=== PATIENT | male | born 1945 | race Caucasian/White ===

== ENCOUNTER 2021-05-23 19:54 | Inpatient (IN) | payer MEDICARE, BC ==
[~2021-05-23] VITALS: Ht 182.9 cm; Wt 96.2 kg
--- NOTE | 2021-05-23 20:15 | NUR ---
pt [facility] from assisted living. a/ox4. pt c/o headache 12/22 and nausea started today at 2pm.pt has hx mi with stent, cva with left sided weakness. pt does not have facial droop, no extremities drift, has symmetrical smile. pt placed on monitor ,vss.
[2021-05-23] MEDS ORDERED: MECLIZINE HCL 25 MG TABLET ONE (20:27)
[2021-05-23] MEDS ORDERED: IV NS 0.9% 1,000 ML BAG IV ONE (20:30)
[2021-05-23] MEDS ORDERED: MECLIZINE HCL 12.5 MG TABLET PO ONE (20:30)
[2021-05-23 20:31] LABS: BASOPHILS % (AUTO) 0.2 % (0.0-2.0); HEMATOCRIT 40 % (39-51); HEMOGLOBIN 13.5 g/dL (13.5-17.5); LYMPHOCYTES # (AUTO) 1.9 K/uL (0.8-4.8); LYMPHOCYTES % (AUTO) 14.7 % (20.0-44.0); MEAN CORPUSCULAR HGB CONC 34 g/dl (31.0-36.0); MEAN CORPUSCULAR VOLUME 91 fL (80-96); MONOCYTES # (AUTO) 1.1 K/uL (0.1-1.30); MONOCYTES % (AUTO) 8.7 % (2.0-12.0); NEUTROPHILS # (AUTO) 9.2 K/uL (1.8-8.9); NEUTROPHILS % (AUTO) 72.4 % (43.0-81.0); PLATELET COUNT (AUTO) 214 K/uL (150-450); RED BLOOD CELL COUNT(AUTO) 4.37 MIL/uL (4.5-6.0); WHITE BLOOD COUNT (AUTO) 12.7 K/uL (4.3-11.0)
[2021-05-23 20:47] LABS: ALANINE AMINOTRANSFERASE 34 U/L (12-78); ALKALINE PHOSPHATASE 138 U/L (46-116); ASPARTATE AMINOTRANSFERASE 18 U/L (15-37); BILIRUBIN,DIRECT 0.2 mg/dL (0.0-0.2); BILIRUBIN,TOTAL 0.7 mg/dL (0.2-1.0); CALCIUM, SERUM 8.4 mg/dL (8.5-10.1); CARBON DIOXIDE 28 mmol/L (21-32); CHLORIDE 104 mmol/L (98-107); CREATININE 1.5 mg/dL (0.6-1.3); GLUCOSE 115 mg/dL (74-106); POTASSIUM 3.8 mmol/L (3.5-5.1); SODIUM SERUM 140 mmol/L (136-145); TOTAL PROTEIN, SERUM 6.4 g/dL (6.4-8.2); UREA NITROGEN, BLOOD 27 mg/dL (7-18)
[2021-05-23] MEDS ORDERED: ENOXAPARIN SODIUM 100 MG/ML DISP.SYRIN SQ ONE ×2 (21:30→22:06)
--- NOTE | 2021-05-23 22:10 | NUR ---
TELE 109
--- NOTE | 2021-05-23 22:30 | NUR ---
report given to diandra reddy).
--- NOTE | 2021-05-23 22:42 | NUR ---
RN NOTE REPORT RECEIVED BY LILIAM SOTO.
--- NOTE | 2021-05-23 22:45 | NUR ---
RN NOTE PT TRANSFERRED TO [facility] FROM ER. PT IS ON ROOM AIR SHOWING NO S/S OF RESP DISTRESS/SOB. PT IS A/OX4. ON TELE MONITOR SHOWING HR IN HIGH 50'S. IV ACCESS NOTED ON LEFT AC #18. LINE FLUSHED, PATENT, AND INTACT WITH NO SIGNS OF INFILTRATION. ALL SAFETY MEASURES IMPLEMENTED. BED ALARM ON. BED LOCKED AND IN LOWEST POSITION. CALL LIGHT WITHIN REACH. WILL CONTINUE TO MONITOR AND ASSESS FOR ANY CHANGES DURING SHIFT.
[2021-05-23] MEDS ORDERED: DOCU100C36 PO (22:51)
[2021-05-23] MEDS ORDERED: FINA5TAB4 PO (22:51)
[2021-05-23] MEDS ORDERED: ASPI-1169 PO (22:51)
[2021-05-23] MEDS ORDERED: CARV12.52 PO (22:51)
[2021-05-23] MEDS ORDERED: ATOR80TA PO (22:51)
[2021-05-23] MEDS ORDERED: OMEP20CA15 PO (22:51)
[2021-05-23] MEDS ORDERED: VALS160T29 PO (22:51)
[2021-05-23] MEDS ORDERED: HYDR-4077 PO (22:51)
[2021-05-23] MEDS ORDERED: CITA10TA9 PO (22:51)
[2021-05-23] MEDS ORDERED: NICO-676 TP (22:51)
--- NOTE | 2021-05-23 22:53 | NUR ---
pt transfeered to [facility] per acls protocol.
[2021-05-23] MEDS ORDERED: ZOLPIDEM TARTRATE 5 MG TABLET PO PRN (23:00)
[2021-05-23] MEDS ORDERED: Z GUARD REMEDY 2 OZ OINT TP PRN (23:00)
[2021-05-23] MEDS ORDERED: ONDANSETRON HCL/PF 4 MG/2 ML VIAL IVP PRN (23:00)
[2021-05-23] MEDS ORDERED: MAG HYDROX/AL HYDROX/SIMETH 30 ML UDC PO PRN (23:00)
[2021-05-23] MEDS ORDERED: MAGNESIUM HYDROXIDE 30 ML UDC PO PRN (23:00)
[2021-05-23 23:05] VITALS: BP 184/89
[2021-05-23] MEDS ORDERED: hydrALAZINE HCL IV 20 MG VIAL IV PRN (23:30)
[2021-05-23] MEDS ORDERED: IV NS 0.45% 500 ML IV ONE (23:30)
--- NOTE | 2021-05-23 23:47 | NUR ---
RN NOTE SPOKE WITH DR. VERA ABOUT PT SYSTOLIC BP IN 180S. DR. VERA ORDERED HYDRALAZINE 10MG IVP Q4H PRN FOR SBP >160. ALSO INFORMED ABOUT PT HR OF 58. PER DR. VERA ORDER, OKAY TO STILL GIVE. ORDER NOTED AND CARRIED OUT.
--- NOTE | 2021-05-24 02:12 | NUR ---
RN NOTE PT BP NOW WNL OF 147/77. WILL CONTINUE TO MONITOR AND ASSESS FOR ANY CHANGES.
[2021-05-24 04:00] VITALS: BP 155/86
[2021-05-24 06:44] LABS: BASOPHILS # (AUTO) 0.1 K/uL (0.0-0.2); EOSINOPHILS % (AUTO) 4.8 % (0.0-6.0); HEMATOCRIT 38 % (39-51); HEMOGLOBIN 13.1 g/dL (13.5-17.5); LYMPHOCYTES # (AUTO) 2.2 K/uL (0.8-4.8); LYMPHOCYTES % (AUTO) 21.1 % (20.0-44.0); MEAN CORPUSCULAR HGB CONC 34 g/dl (31.0-36.0); MEAN CORPUSCULAR VOLUME 92 fL (80-96); MONOCYTES # (AUTO) 0.9 K/uL (0.1-1.30); MONOCYTES % (AUTO) 8.2 % (2.0-12.0); NEUTROPHILS # (AUTO) 6.8 K/uL (1.8-8.9); NEUTROPHILS % (AUTO) 64.9 % (43.0-81.0); PLATELET COUNT (AUTO) 186 K/uL (150-450); RED BLOOD CELL COUNT(AUTO) 4.18 MIL/uL (4.5-6.0); WHITE BLOOD COUNT (AUTO) 10.4 K/uL (4.3-11.0)
[2021-05-24 06:52] LABS: CALCIUM, SERUM 8.5 mg/dL (8.5-10.1); CARBON DIOXIDE 26 mmol/L (21-32); CHLORIDE 106 mmol/L (98-107); CREATININE 1.5 mg/dL (0.6-1.3); GLUCOSE 93 mg/dL (74-106); MAGNESIUM 1.6 mg/dL (1.8-2.4); PHOSPHORUS 3.1 mg/dL (2.5-4.9); SODIUM SERUM 141 mmol/L (136-145); UREA NITROGEN, BLOOD 22 mg/dL (7-18)
--- NOTE | 2021-05-24 06:58 | NUR ---
RN NOTE NO CHANGES IN PT CONDITION DURING SHIFT. PT IS ON ROOM AIR SHOWING NO S/S OF RESP DISTRESS/SOB. PT IS A/OX4. IV ACCESS NOTED ON LEFT AC #18. LINE FLUSHED, PATENT, AND INTACT WITH NO SIGNS OF INFILTRATION. ALL DUE MEDS GIVEN ORDERED. PT KEPT CLEAN AND COMFORTABLE. ALL SAFETY MEASURES IMPLEMENTED. BED ALARM ON. BED LOCKED AND IN LOWEST POSITION. CALL LIGHT WITHIN REACH. WILL ENDORSE TO MORNING SHIFT RN FOR JC.
[2021-05-24 07:47] LABS: THYROID STIMULATING HORMONE 1.325 uIU/mL (0.358-3.74)
[2021-05-24] MEDS ORDERED: FLUT16SP (07:48)
[2021-05-24] MEDS ORDERED: ALBU8.5H8 IH (07:48)
[2021-05-24] MEDS ORDERED: PRAS10TA5 PO (07:48)
--- NOTE | 2021-05-24 07:59 | NUR ---
NURSE OPENING NOTE. RECEIVE REPORT FROM LITHOGRAPHIC PRESS OPERATOR NURSE. PATIENT WAS ADMITTED LAST NIGHT WITH DX: NSTEMI. A/O X4. WILL FOLLOW UP TROPONIN, AM LABS, AND CARDIAC CONSULT. REMAIN ON IV FLUID HYDRATION. SAFETY MEASURE IN PLACE. BED ON THE LOWEST POSITION WITH HOB ELEVATED. CALL LIGHT WITHIN REACH. WILL CONTINUE TO MONITOR.
[2021-05-24 08:00] VITALS: BP 189/82
[2021-05-24] MEDS: CARVEDILOL 12.5 MG TABLET PO SCH ×2 (08:50→20:32)
[2021-05-24] MEDS: DOCUSATE SODIUM 100 MG CAPSULE PO SCH ×3 (08:51→18:22)
[2021-05-24] MEDS: FINASTERIDE (5 MG) 5 MG TABLET PO SCH (08:52)
[2021-05-24] MEDS: ATORVASTATIN 40 MG TABLET PO SCH (08:52)
[2021-05-24] MEDS: NICOTINE PATCH (14MG) 14 MG PATCH.TD24 TD SCH (08:52)
[2021-05-24] MEDS: ASPIRIN 81 MG TAB.CHEW PO SCH (08:52)
[2021-05-24] MEDS: PANTOPRAZOLE 40 MG TABLET.DR PO SCH (08:56)
[2021-05-24] MEDS: CITALOPRAM HYDROBROMIDE 10 MG TABLET PO SCH (08:58)
[2021-05-24] MEDS ORDERED: ENOXAPARIN SODIUM 100 MG/ML DISP.SYRIN SQ SCH ×2 (09:00)
[2021-05-24] MEDS ORDERED: OMEPRAZOLE 20 MG CAPSULE.DR PO SCH (09:00)
[2021-05-24] MEDS ORDERED: hydrALAZINE HCL 50 MG TABLET PO SCH (09:00)
[2021-05-24] MEDS ORDERED: CLOPIDOGREL BISULFATE 300 MG TABLET PO ONE (09:30)
[2021-05-24] MEDS: Magnesium 1GM/D5W 100ML PREMIX 100 ML IV SCH ×2 (10:11→11:47)
[2021-05-24] MEDS: ISOSORBIDE DINITRATE (20MG) 20 MG TABLET PO SCH ×2 (10:11→18:14)
[2021-05-24 12:00] VITALS: BP 116/58
[2021-05-24] MEDS: hydrALAZINE HCL 50 MG TABLET PO SCH ×2 (13:55→18:15)
[2021-05-24 16:00] VITALS: BP 116/58
--- NOTE | 2021-05-24 19:44 | NUR ---
NURSE CLOSING NOTE. PATIENT IN STABLE CONDITION THROUGHOUT SHIFT. TOOK ALL MEDICATIONS. REFUSED DUCOSAT AT 1700. HAD 2 LARGE BOWEL MOVEMENTS. CONTINUE TO MONITOR TROPONIN TREND. CONTINUE TO MONITOR LABS. ALL SAFETY MEASURE IN PLACE. BED ON LOWEST POSITION WITH HOB ELEVATED AND 3 SIDE RAIL UP. CALL LIGHT WITHIN REACH.
[2021-05-24 20:00] VITALS: BP 112/90
[2021-05-24] MEDS: IV NS 0.9% 1,000 ML IV PRN (20:16)
[2021-05-25] VITALS: BP 95/54
[2021-05-25 04:00] VITALS: BP 107/64
--- NOTE | 2021-05-25 06:48 | NUR ---
RN NOTE NO SIGNIFICANT CHANGES IN PT CONDITION, ASIDE FROM PLACING PT ON O2 AT 2L VIA NC PT O2 SAT WAS 92%. PT STABLE AT THIS TIME. PT WAS CLEANED CHANGED LINENS CHANGED, IVF STILL RUNNING ORDERED SAFETY MEASURES IN PLACE. PT IS INDEPENDENT WITH URINAL USE, PT DENIES VOID TONIGHT, WILL ENDORSE TO DAY SHIFT FOR CONTINUATION OF CARE.
--- NOTE | 2021-05-25 07:12 | NUR ---
GEAR GRINDER OPENING NOTE. RECEIVE PATIENT RESTING IN BED. PATIENT IS A/O X4. PATIENT IS BREATHING EVENLY AND NONLABORED ON 2LPM VIA NASAL CANNULA. NO SIGNS OF DISTRESS NOTED. PATIENT DENIES PAIN OR DISCOMFORT AT THIS TIME. PATIENT IS ON TELE MONITOR SHOWING NSR. PATIENT HAS IV ACCESS TO LAC # 18 RUNNING NS @ 100 ML/HR. SAFETY MEASURE IN PLACE. BED ON THE LOWEST POSITION WITH HOB ELEVATED. CALL LIGHT WITHIN REACH. WILL CONTINUE TO MONITOR.
[2021-05-25 08:00] VITALS: BP 130/76
[2021-05-25] MEDS: NICOTINE PATCH (14MG) 14 MG PATCH.TD24 TD SCH (08:14)
[2021-05-25] MEDS: CARVEDILOL 12.5 MG TABLET PO SCH ×2 (08:14→20:16)
[2021-05-25] MEDS: ATORVASTATIN 40 MG TABLET PO SCH (08:14)
[2021-05-25] MEDS: PANTOPRAZOLE 40 MG TABLET.DR PO SCH (08:14)
[2021-05-25] MEDS: CLOPIDOGREL BISULFATE 75 MG TABLET PO SCH (08:14)
[2021-05-25] MEDS: ASPIRIN 81 MG TAB.CHEW PO SCH (08:14)
[2021-05-25] MEDS: ISOSORBIDE DINITRATE (20MG) 20 MG TABLET PO SCH ×2 (08:14→16:10)
[2021-05-25] MEDS: FINASTERIDE (5 MG) 5 MG TABLET PO SCH (08:14)
[2021-05-25] MEDS: hydrALAZINE HCL 50 MG TABLET PO SCH ×3 (08:15→16:10)
[2021-05-25] MEDS: CITALOPRAM HYDROBROMIDE 10 MG TABLET PO SCH (08:48)
[2021-05-25 10:11] LABS: CALCIUM, SERUM 8.6 mg/dL (8.5-10.1); CARBON DIOXIDE 18 mmol/L (21-32); CHLORIDE 106 mmol/L (98-107); CREATININE 1.6 mg/dL (0.6-1.3); GLUCOSE 95 mg/dL (74-106); SODIUM SERUM 138 mmol/L (136-145); UREA NITROGEN, BLOOD 31 mg/dL (7-18)
[2021-05-25 10:17] LABS: ALANINE AMINOTRANSFERASE 24 U/L (12-78); ALBUMIN 2.7 g/dL (3.4-5.0); ALKALINE PHOSPHATASE 135 U/L (46-116); ASPARTATE AMINOTRANSFERASE 20 U/L (15-37); BILIRUBIN,TOTAL 0.8 mg/dL (0.2-1.0); MAGNESIUM 2.2 mg/dL (1.8-2.4); PHOSPHORUS 3.6 mg/dL (2.5-4.9); TOTAL PROTEIN, SERUM 5.9 g/dL (6.4-8.2)
[2021-05-25 11:19] LABS: BASOPHILS # (AUTO) 0.1 K/uL (0.0-0.2); BASOPHILS % (AUTO) 0.6 % (0.0-2.0); EOSINOPHILS % (AUTO) 3.5 % (0.0-6.0); HEMATOCRIT 38 % (39-51); HEMOGLOBIN 12.8 g/dL (13.5-17.5); LYMPHOCYTES # (AUTO) 1.4 K/uL (0.8-4.8); LYMPHOCYTES % (AUTO) 13.3 % (20.0-44.0); MEAN CORPUSCULAR HGB CONC 34 g/dl (31.0-36.0); MEAN CORPUSCULAR VOLUME 92 fL (80-96); MONOCYTES % (AUTO) 9.8 % (2.0-12.0); NEUTROPHILS # (AUTO) 7.7 K/uL (1.8-8.9); NEUTROPHILS % (AUTO) 72.8 % (43.0-81.0); PLATELET COUNT (AUTO) 184 K/uL (150-450); RED BLOOD CELL COUNT(AUTO) 4.09 MIL/uL (4.5-6.0); WHITE BLOOD COUNT (AUTO) 10.6 K/uL (4.3-11.0)
[2021-05-25 12:10] VITALS: BP 123/60
[2021-05-25 16:09] VITALS: BP 146/71
[2021-05-25] MEDS: DOCUSATE SODIUM 100 MG CAPSULE PO SCH (16:10)
--- NOTE | 2021-05-25 18:24 | NUR ---
SCALES INSPECTOR CLOSING NOTE. PATIENT RESTING IN BED. PATIENT IS A/O X4. PATIENT IS BREATHING EVENLY AND NONLABORED ON 2LPM VIA NASAL CANNULA. NO SIGNS OF DISTRESS NOTED. PATIENT DENIES PAIN OR DISCOMFORT AT THIS TIME. PATIENT IS ON TELE MONITOR SHOWING NSR. PATIENT HAS IV ACCESS TO LAC # 18 RUNNING NS @ 100 ML/HR. ALL MEDICATIONS GIVEN ORDERED. SAFETY MEASURE IN PLACE. BED ON THE LOWEST POSITION WITH HOB ELEVATED. CALL LIGHT WITHIN REACH. WILL ENDORSE TO ONCOMING SHIFT.
--- NOTE | 2021-05-25 19:40 | NUR ---
RN NOTE PT RECEIVED IN BED. PT IS ON ROOM AIR SHOWING NO S/S OF RESP DISTRESS/SOB. PT IS A/OX4. ON TELE MONITOR SHOWING NSR. ON CARDIAC DIET. IV ACCESS NOTED ON LEFT AC #18. 0.9% NS RUNNING AT 100 ML/HR. LINE FLUSHED, PATENT, AND INTACT WITH NO SIGNS OF INFILTRATION. ALL SAFETY MEASURES IMPLEMENTED. BED ALARM ON. BED LOCKED AND IN LOWEST POSITION. CALL LIGHT WITHIN REACH. SIDE RAILS UP. WILL CONTINUE TO MONITOR AND ASSESS FOR ANY CHANGES DURING SHIFT.
[2021-05-25 20:00] VITALS: BP 140/74
[2021-05-25] MEDS: IV NS 0.9% 1,000 ML IV PRN (20:16)
[2021-05-26] VITALS: BP 128/67
[2021-05-26] MEDS: ACETAMINOPHEN 325 MG TABLET PO PRN ×2 (01:02→08:54)
[2021-05-26 04:00] VITALS: BP 142/84
[2021-05-26 06:59] LABS: BASOPHILS # (AUTO) 0.1 K/uL (0.0-0.2); EOSINOPHILS % (AUTO) 5.6 % (0.0-6.0); HEMATOCRIT 34 % (39-51); HEMOGLOBIN 11.7 g/dL (13.5-17.5); LYMPHOCYTES # (AUTO) 1.7 K/uL (0.8-4.8); MEAN CORPUSCULAR HGB CONC 34 g/dl (31.0-36.0); MEAN CORPUSCULAR VOLUME 92 fL (80-96); MONOCYTES # (AUTO) 1.1 K/uL (0.1-1.30); MONOCYTES % (AUTO) 10.6 % (2.0-12.0); NEUTROPHILS # (AUTO) 6.9 K/uL (1.8-8.9); NEUTROPHILS % (AUTO) 66.8 % (43.0-81.0); PLATELET COUNT (AUTO) 166 K/uL (150-450); RED BLOOD CELL COUNT(AUTO) 3.74 MIL/uL (4.5-6.0); WHITE BLOOD COUNT (AUTO) 10.4 K/uL (4.3-11.0)
[2021-05-26 07:05] LABS: CALCIUM, SERUM 7.9 mg/dL (8.5-10.1); CARBON DIOXIDE 23 mmol/L (21-32); CHLORIDE 106 mmol/L (98-107); CREATININE 1.6 mg/dL (0.6-1.3); GLUCOSE 99 mg/dL (74-106); MAGNESIUM 1.7 mg/dL (1.8-2.4); PHOSPHORUS 2.7 mg/dL (2.5-4.9); POTASSIUM 3.6 mmol/L (3.5-5.1); SODIUM SERUM 137 mmol/L (136-145); UREA NITROGEN, BLOOD 26 mg/dL (7-18)
--- NOTE | 2021-05-26 07:13 | NUR ---
RN NOTE NO CHANGES IN PT CONDITION DURING SHIFT. PT IS ON ROOM AIR SHOWING NO S/S OF RESP DISTRESS/SOB. IV ACCESS NOTED ON LEFT AC #18. LINE FLUSHED, PATENT, AND INTACT WITH NO SIGNS OF INFILTRATION. ALL DUE MEDS GIVEN ORDERED. PT KEPT CLEAN AND COMFORTABLE. ALL SAFETY MEASURES IMPLEMENTED. BED ALARM ON. BED LOCKED AND IN LOWEST POSITION. CALL LIGHT WITHIN REACH. WILL ENDORSE TO MORNING SHIFT RN FOR JC.
--- NOTE | 2021-05-26 07:21 | NUR ---
RN OPENING NOTE PATIENT RECEIVED IN BED, RESTING. PATIENT ON ROOM AIR WITH NO SIGNS OF LABORED BREATHING AT THIS TIME. LEFT AC 18G IV IN PLACE, PATENT WITH NO SIGNS OF INFILTRATION RUNNING NS AT 100CC/HR. NO SIGNS OF DISTRESS NOTED AT THIS TIME. BED LOCKED AND IN LOWEST POSITION, 3 SIDE RAILS UP, CALL LIGHT WITHIN REACH, ALL SAFETY MEASURES IMPLEMENTED. WILL CONTINUE TO MONITOR.
[2021-05-26] MEDS: PANTOPRAZOLE 40 MG TABLET.DR PO SCH (07:30)
[2021-05-26 08:00] VITALS: BP 159/78
[2021-05-26] MEDS: ASPIRIN 81 MG TAB.CHEW PO SCH (08:42)
[2021-05-26] MEDS: ATORVASTATIN 40 MG TABLET PO SCH (08:42)
[2021-05-26] MEDS: NICOTINE PATCH (14MG) 14 MG PATCH.TD24 TD SCH (08:42)
[2021-05-26] MEDS: ISOSORBIDE DINITRATE (20MG) 20 MG TABLET PO SCH ×2 (08:43→16:03)
[2021-05-26] MEDS: FINASTERIDE (5 MG) 5 MG TABLET PO SCH (08:43)
[2021-05-26] MEDS: DOCUSATE SODIUM 100 MG CAPSULE PO SCH ×2 (08:43→16:02)
[2021-05-26] MEDS: hydrALAZINE HCL 50 MG TABLET PO SCH ×3 (08:43→16:02)
[2021-05-26] MEDS: CLOPIDOGREL BISULFATE 75 MG TABLET PO SCH (08:44)
[2021-05-26] MEDS: CARVEDILOL 12.5 MG TABLET PO SCH ×2 (08:44→21:23)
[2021-05-26] MEDS: CITALOPRAM HYDROBROMIDE 10 MG TABLET PO SCH (08:45)
[2021-05-26] MEDS: Magnesium 1GM/D5W 100ML PREMIX 100 ML IV SCH ×2 (10:04→11:03)
[2021-05-26] MEDS: IV NS 0.9% 1,000 ML IV PRN ×2 (11:03→20:44)
[2021-05-26 12:00] VITALS: BP 117/61
[2021-05-26 16:00] VITALS: BP 143/62
[2021-05-26] MEDS ORDERED: HYDR-4077 PO (16:47)
[2021-05-26] MEDS ORDERED: ISOS20TA8 PO (16:47)
--- NOTE | 2021-05-26 18:30 | NUR ---
RN CLOSING NOTE PATIENT IN BED, RESTING, A&OX4. PATIENT ON ROOM AIR WITH NO SIGNS OF LABORED BREATHING AT THIS TIME. TELE MONITOR ON, SINUS RHYTHM. LEFT AC 18G IV IN PLACE, PATENT WITH NO SIGNS OF INFILTRATION. NO SIGNS OF DISTRESS NOTED AT THIS TIME. BED LOCKED AND IN LOWEST POSITION, CALL LIGHT WITHIN REACH, 2 SIDE RAILS UP, ALL SAFETY MEASURES IMPLEMENTED. WILL ENDORSE TO ASSISTANT DIRECTOR OF NURSING NURSE.
--- NOTE | 2021-05-26 19:40 | NUR ---
RN NOTE RECEIVED PATIENT IN BED, AWAKE, ALERT, AND VERBALLY RESPONSIVE, WATCHING TELEVISION. BREATHING EVEN AND UNLABORED. NO SOB NOTED. NO COUGH/CONGESTION NOTED. APPLIED OXYGEN LOW FLOW PER PATIENT REQUEST. TOLERATING WITH OXYGEN SATURATION OF 96 PERCENT. SKIN WARM AND DRY. NOTED WITH LEFT LATERAL AC 18G. PATENT, RUNNING NS AT 100 ML/HR. NO INFILTRATION NOTED. DENIES PAIN AT THIS TIME. ALL NEEDS ATTENDED. BED LOW, IN LOCKED POSITION. CALL LIGHT WITHIN REACH.
[2021-05-26 20:00] VITALS: BP 136/65
[2021-05-27] VITALS: BP 126/80
[2021-05-27 04:00] VITALS: BP 144/68
[2021-05-27] MEDS: IV NS 0.9% 1,000 ML IV PRN (05:14)
[2021-05-27 06:31] LABS: BASOPHILS # (AUTO) 0.1 K/uL (0.0-0.2); BASOPHILS % (AUTO) 0.8 % (0.0-2.0); EOSINOPHILS % (AUTO) 5.7 % (0.0-6.0); HEMATOCRIT 35 % (39-51); HEMOGLOBIN 11.9 g/dL (13.5-17.5); LYMPHOCYTES # (AUTO) 1.5 K/uL (0.8-4.8); LYMPHOCYTES % (AUTO) 14.5 % (20.0-44.0); MEAN CORPUSCULAR HGB CONC 35 g/dl (31.0-36.0); MEAN CORPUSCULAR VOLUME 91 fL (80-96); MONOCYTES % (AUTO) 9.3 % (2.0-12.0); NEUTROPHILS # (AUTO) 7.4 K/uL (1.8-8.9); NEUTROPHILS % (AUTO) 69.7 % (43.0-81.0); PLATELET COUNT (AUTO) 165 K/uL (150-450); RED BLOOD CELL COUNT(AUTO) 3.79 MIL/uL (4.5-6.0); WHITE BLOOD COUNT (AUTO) 10.6 K/uL (4.3-11.0)
[2021-05-27 07:08] LABS: CALCIUM, SERUM 8.1 mg/dL (8.5-10.1); CARBON DIOXIDE 24 mmol/L (21-32); CHLORIDE 105 mmol/L (98-107); CREATININE 1.6 mg/dL (0.6-1.3); GLUCOSE 96 mg/dL (74-106); MAGNESIUM 1.8 mg/dL (1.8-2.4); PHOSPHORUS 2.7 mg/dL (2.5-4.9); POTASSIUM 3.8 mmol/L (3.5-5.1); SODIUM SERUM 138 mmol/L (136-145); UREA NITROGEN, BLOOD 23 mg/dL (7-18)
--- NOTE | 2021-05-27 07:35 | NUR ---
RN OPENING NOTE PATIENT RECEIVED IN BED, RESTING. PATIENT ON ROOM AIR WITH NO SIGNS OF LABORED BREATHING AT THIS TIME. TELE MONITOR ON, SINUS RHYTHM. LEFT AC IV IN PLACE, PATENT WITH NO SIGNS OF INFILTRATION RUNNING NS AT 100CC/HR. NO SIGNS OF DISTRESS NOTED AT THIS TIME. BED LOCKED AND IN LOWEST POSITION, CALL LIGHT WITHIN REACH, 2 SIDE RAILS UP, ALL SAFETY MEASURES IMPLEMENTED. WILL CONTINUE TO MONITOR.
[2021-05-27 08:00] VITALS: BP 170/85
[2021-05-27] MEDS: NICOTINE PATCH (14MG) 14 MG PATCH.TD24 TD SCH (08:38)
[2021-05-27] MEDS: PANTOPRAZOLE 40 MG TABLET.DR PO SCH (08:38)
[2021-05-27] MEDS: ASPIRIN 81 MG TAB.CHEW PO SCH (08:38)
[2021-05-27] MEDS: ATORVASTATIN 40 MG TABLET PO SCH (08:39)
[2021-05-27] MEDS: CARVEDILOL 12.5 MG TABLET PO SCH (08:39)
[2021-05-27] MEDS: ISOSORBIDE DINITRATE (20MG) 20 MG TABLET PO SCH (08:39)
[2021-05-27] MEDS: CITALOPRAM HYDROBROMIDE 10 MG TABLET PO SCH (08:39)
[2021-05-27] MEDS: hydrALAZINE HCL 50 MG TABLET PO SCH ×2 (08:40→12:00)
[2021-05-27] MEDS: DOCUSATE SODIUM 100 MG CAPSULE PO SCH (08:40)
[2021-05-27] MEDS: CLOPIDOGREL BISULFATE 75 MG TABLET PO SCH (08:40)
[2021-05-27] MEDS: FINASTERIDE (5 MG) 5 MG TABLET PO SCH (08:40)
--- NOTE | 2021-05-27 09:15 | NUR ---
per cm pt waiting for insurance authorization to snf.
--- NOTE | 2021-05-27 10:16 | NUR ---
PER [facility] COVID NEGATIVE PCR.
[2021-05-27 12:00] VITALS: BP 108/54
--- NOTE | 2021-05-27 14:28 | NUR ---
RN NOTE PATIENT DISCHARGED PER ORDER. PATIENT MEDICALLY STABLE AT THIS OF DISCHARGE, ON ROOM AIR SATURATING AT 95% WITH NO SIGNS OF LABORED BREATHING. PATIENT TO GO TO [facility], REPORT GIVEN TO ONUR. PATIENT LEFT THE FACILITY BY AMBULANCE.
== END 2021-05-27 14:43 | DRG 280 ==
LOC: ER 20:00 → TELE1 22:17 → MEDSG1 05-27 09:47
PROVIDERS: ADMIT Student in an Organized Health Care Education/Training Program; ATTEND Nurse Practitioner Acute Care
DX: I21.4 Non-ST elevation (NSTEMI) myocardial infarction (principal); N17.0 Acute kidney failure with tubular necrosis; E44.0 Moderate protein-calorie malnutrition; I25.2 Old myocardial infarction; Z86.73 Personal history of transient ischemic attack (TIA), and cerebral infarction without residual deficits; I25.10 Atherosclerotic heart disease of native coronary artery without angina pectoris; Z20.822 Contact with and (suspected) exposure to COVID-19; Z88.5 Allergy status to narcotic agent; Z88.8 Allergy status to other drugs, medicaments and biological substances; D72.828 Other elevated white blood cell count; Z85.528 Personal history of other malignant neoplasm of kidney; Z90.5 Acquired absence of kidney; Z95.5 Presence of coronary angioplasty implant and graft; I12.9 Hypertensive chronic kidney disease with stage 1 through stage 4 chronic kidney disease, or unspecified chronic kidney disease; N18.30 Chronic kidney disease, stage 3 unspecified; E83.51 Hypocalcemia; E83.42 Hypomagnesemia; Z72.0 Tobacco use
CPT/HCPCS: 36415; 70450-TC; 71045-TC; 80048-TC; 80053-TC; 80076-TC; 83735-TC; 84100-TC; 84443-TC; 84484-TC; 85025-TC; 85730-TC; 87081-TC; 93307-TC; 97116-TC; 97530-TC; C9803; G0378; J0360; J1650; J3475; J3490; J7030; J7050; J8597; U0003